=== PATIENT | male | born 1950 | race Caucasian/White ===

== ENCOUNTER → 2019-12-16 09:27 | Outpatient (BNVA) | payer MEDICARE, SELFPAY | PROVIDERS: Family Provider Nurse Practitioner Family; PCP Nurse Practitioner Family; Visit Provider Nurse Practitioner Family | DX: I10 Essential (primary) hypertension (principal); M1A.20X0 Drug-induced chronic gout, unspecified site, without tophus (tophi); E78.2 Mixed hyperlipidemia; E03.9 Hypothyroidism, unspecified; I25.10 Atherosclerotic heart disease of native coronary artery without angina pectoris; E11.69 Type 2 diabetes mellitus with other specified complication; M19.90 Unspecified osteoarthritis, unspecified site; K21.9 Gastro-esophageal reflux disease without esophagitis | CPT/HCPCS: 80053; 80061; 83036; 83721; 84443; 85025 ==

== ENCOUNTER → 2020-06-21 09:51 | Outpatient (BNVA) | payer MEDICARE, SELFPAY | PROVIDERS: Family Provider Nurse Practitioner Family; PCP Nurse Practitioner Family; Visit Provider Nurse Practitioner Family | DX: I25.10 Atherosclerotic heart disease of native coronary artery without angina pectoris (principal); E11.69 Type 2 diabetes mellitus with other specified complication; I10 Essential (primary) hypertension; M1A.20X0 Drug-induced chronic gout, unspecified site, without tophus (tophi) | CPT/HCPCS: 80053; 80061; 82043; 83036; 84443; 84550; 85025 ==

== ENCOUNTER 2020-06-22 08:12 | Outpatient (CLI) | payer MEDICARE, SELFPAY ==
--- NOTE | 2020-06-22 08:45 | US_ITS ---
WS: [id number] RENAL ULTRASOUND HISTORY: Renal Cyst COMPARISON: None available. TECHNIQUE: 2-D and color Doppler imaging of the kidney submitted. Right kidney: 11.4 cm x 5.2 cm x 5.1 cm. Normal size kidney with normal echogenicity. No hydronephrosis. Exophytic cyst associated with the mi d RIGHT kidney measures 4.3 x 2.2 x 2.3 cm. There is an additional pelvic cyst measuring 2.3 x 2.2 x 2.8 cm. Left kidney: 13.7 cm x 5.1 cm x 6.6 cm. Normal size kidney. Large cyst in the lower kidney measures 7.4 x 4.8 x 6.3 cm. There are additional smaller cysts. No solid mass. Aorta: Normal. Urinary Bladder: Normal distention. US/US renal BI* [id number] IMPRESSION: 1. No renal obstruction or solid mass. 2. Bilateral renal cysts.
== END 2020-06-22 08:13 | disposition home or self-care (01) ==
PROVIDERS: PCP Nurse Practitioner Family; Visit Provider Urology
DX: N28.1 Cyst of kidney, acquired (principal)
CPT/HCPCS: 76770; 81001

== ENCOUNTER → 2020-11-02 09:49 | Outpatient (BNVA) | payer MEDICARE, SELFPAY | PROVIDERS: PCP Nurse Practitioner Family; Visit Provider Nurse Practitioner Family | DX: Z12.5 Encounter for screening for malignant neoplasm of prostate (principal); I10 Essential (primary) hypertension; E11.69 Type 2 diabetes mellitus with other specified complication; M1A.20X0 Drug-induced chronic gout, unspecified site, without tophus (tophi); E78.2 Mixed hyperlipidemia; E03.9 Hypothyroidism, unspecified; M19.90 Unspecified osteoarthritis, unspecified site; K21.9 Gastro-esophageal reflux disease without esophagitis; I25.10 Atherosclerotic heart disease of native coronary artery without angina pectoris | CPT/HCPCS: 80053; 80061; 83036; 84443; 84550; 85025; G0103 ==

== ENCOUNTER 2020-11-12 10:08 | Outpatient (CLI) | payer MEDICARE, SELFPAY ==
--- NOTE | 2020-11-12 10:19 | MR_ITS ---
WS: [id number] MRI RIGHT SHOULDER NONCONTRAST TECHNIQUE: Sagittal T2, coronal T1, T2 and proton density imaging. Axial gradient PDE imaging. CLINICAL INFORMATION: RIGHT SHOULDER PAIN COMPARISON: None. FINDINGS: Advanced degenerative arthritis AC joint with edema and synovial thickening. Mild downsloping of the acromion. Tendinopathy of the distal supraspinatus. Small undersurface tear at the insertion. Normal infraspinatus. Normal teres minor and subscapularis. Biceps tendon in the proximal bicipital groove i s absent. Tendon is visualized distally. Chronic degenerative fraying glenoid labrum. Moderate degene rative arthritis glenohumeral joint. MR/MR shoulder RT wo con* [id number] IMPRESSION: 1. Advanced degenerative arthritis AC joint with edema and synovial thickening . 2. No high-grade rotator cuff tear. Small undersurface tear at the supraspinat us insertion with tendinopathy. 3. 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 4. Degenerative fraying of the glenoid labrum. 5. Moderate to advanced degenerative arthritis glenohumeral joint.
== END 2020-11-12 10:09 | disposition home or self-care (01) ==
LOC: RADWPI 10:14
PROVIDERS: PCP Nurse Practitioner Family; Visit Provider Nurse Practitioner Family
DX: M19.011 Primary osteoarthritis, right shoulder (principal); R60.0 Localized edema
CPT/HCPCS: 73221

== ENCOUNTER → 2021-02-14 15:13 | Outpatient (BNVA) | payer MEDICARE, SELFPAY | PROVIDERS: PCP Nurse Practitioner Family; Visit Provider Family Medicine | DX: S46.912A Strain of unspecified muscle, fascia and tendon at shoulder and upper arm level, left arm, initial encounter (principal); I10 Essential (primary) hypertension; E78.2 Mixed hyperlipidemia; E11.69 Type 2 diabetes mellitus with other specified complication; X58.XXXA Exposure to other specified factors, initial encounter | CPT/HCPCS: 80053; 80061; 83036; 83721; 84443; 85025 ==

== ENCOUNTER → 2021-06-27 12:06 | Outpatient (BNVA) | payer MEDICARE, SELFPAY | PROVIDERS: PCP Nurse Practitioner Family; Visit Provider Nurse Practitioner Family | DX: K21.9 Gastro-esophageal reflux disease without esophagitis (principal); M1A.20X0 Drug-induced chronic gout, unspecified site, without tophus (tophi); E11.69 Type 2 diabetes mellitus with other specified complication; Z76.0 Encounter for issue of repeat prescription; E78.2 Mixed hyperlipidemia; E03.9 Hypothyroidism, unspecified; I10 Essential (primary) hypertension; Z68.38 Body mass index [BMI] 38.0-38.9, adult | CPT/HCPCS: 80053; 80061; 82306; 82607; 83036; 84443; 84550; 85025 ==

== ENCOUNTER → 2021-11-25 12:09 | Outpatient (BNVA) | payer MEDICARE, SELFPAY | PROVIDERS: PCP Nurse Practitioner Family; Visit Provider Nurse Practitioner Family | DX: E11.9 Type 2 diabetes mellitus without complications (principal); E78.2 Mixed hyperlipidemia; I10 Essential (primary) hypertension; E03.9 Hypothyroidism, unspecified; M1A.20X0 Drug-induced chronic gout, unspecified site, without tophus (tophi); E11.69 Type 2 diabetes mellitus with other specified complication; M19.90 Unspecified osteoarthritis, unspecified site; I25.10 Atherosclerotic heart disease of native coronary artery without angina pectoris; K21.9 Gastro-esophageal reflux disease without esophagitis; Z12.5 Encounter for screening for malignant neoplasm of prostate | CPT/HCPCS: 80053; 80061; 83036; 83721; 84443; 84550; G0103 ==

== ENCOUNTER → 2022-04-19 13:21 | Outpatient (BNVA) | payer MEDICARE, SELFPAY | PROVIDERS: PCP Nurse Practitioner Family; Visit Provider Nurse Practitioner Family | DX: E03.9 Hypothyroidism, unspecified (principal); I10 Essential (primary) hypertension; K21.9 Gastro-esophageal reflux disease without esophagitis; E78.2 Mixed hyperlipidemia; E11.9 Type 2 diabetes mellitus without complications; E55.9 Vitamin D deficiency, unspecified; M1A.20X0 Drug-induced chronic gout, unspecified site, without tophus (tophi); E11.69 Type 2 diabetes mellitus with other specified complication; M19.90 Unspecified osteoarthritis, unspecified site; I25.10 Atherosclerotic heart disease of native coronary artery without angina pectoris | CPT/HCPCS: 80053; 80061; 82306; 83036; 83721 ==

== ENCOUNTER → 2022-05-11 09:07 | Outpatient (BNVA) | payer MEDICARE, SELFPAY | PROVIDERS: PCP Nurse Practitioner Family; Visit Provider Podiatrist Foot & Ankle Surgery | DX: E11.9 Type 2 diabetes mellitus without complications (principal); R60.9 Edema, unspecified; Z79.84 Long term (current) use of oral hypoglycemic drugs; Z79.4 Long term (current) use of insulin | CPT/HCPCS: 99203 ==

== ENCOUNTER → 2022-08-25 11:22 | Outpatient (BNVA) | payer MEDICARE, SELFPAY | PROVIDERS: PCP Nurse Practitioner Family; Visit Provider Nurse Practitioner Family | DX: E11.9 Type 2 diabetes mellitus without complications (principal); E55.9 Vitamin D deficiency, unspecified; Z23 Encounter for immunization; M1A.20X0 Drug-induced chronic gout, unspecified site, without tophus (tophi); E03.9 Hypothyroidism, unspecified; I10 Essential (primary) hypertension; K21.9 Gastro-esophageal reflux disease without esophagitis; E78.2 Mixed hyperlipidemia | CPT/HCPCS: 80053; 80061; 82043; 82306; 82607; 83036; 83721; 84443; 84550; 85025 ==

== ENCOUNTER → 2022-11-29 10:49 | Outpatient (BNVA) | payer MEDICARE, SELFPAY | PROVIDERS: PCP Nurse Practitioner Family; Visit Provider Nurse Practitioner Family | DX: E11.9 Type 2 diabetes mellitus without complications (principal); E03.9 Hypothyroidism, unspecified; Z12.5 Encounter for screening for malignant neoplasm of prostate | CPT/HCPCS: 80053; 80061; 83036; 84443; 84550; 85025; G0103 ==

== ENCOUNTER → 2023-03-20 10:30 | Outpatient (BNVA) | payer MEDICARE, SELFPAY | PROVIDERS: PCP Nurse Practitioner Family; Visit Provider Nurse Practitioner Family | DX: E11.69 Type 2 diabetes mellitus with other specified complication (principal) | CPT/HCPCS: 80053; 80061; 83036; 84443; 85025 ==

== ENCOUNTER → 2023-08-08 10:56 | Outpatient (BNVA) | payer MEDICARE, SELFPAY | PROVIDERS: PCP Nurse Practitioner Family; Visit Provider Nurse Practitioner Family | DX: E55.9 Vitamin D deficiency, unspecified (principal); E11.69 Type 2 diabetes mellitus with other specified complication | CPT/HCPCS: 80053; 80061; 82306; 83036; 84443; 85025 ==

== ENCOUNTER → 2024-02-18 10:49 | Outpatient (BNVA) | payer MEDICARE, SELFPAY | PROVIDERS: PCP Nurse Practitioner Family; Visit Provider Nurse Practitioner Family | DX: G47.10 Hypersomnia, unspecified (principal); E11.65 Type 2 diabetes mellitus with hyperglycemia; Z79.4 Long term (current) use of insulin; Z12.5 Encounter for screening for malignant neoplasm of prostate; E55.9 Vitamin D deficiency, unspecified; M1A.20X0 Drug-induced chronic gout, unspecified site, without tophus (tophi); I10 Essential (primary) hypertension; E78.2 Mixed hyperlipidemia; E03.9 Hypothyroidism, unspecified; K21.9 Gastro-esophageal reflux disease without esophagitis; G47.33 Obstructive sleep apnea (adult) (pediatric); R53.82 Chronic fatigue, unspecified | CPT/HCPCS: 80053; 80061; 82306; 82607; 83036; 84443; 84550; 85025; G0103 ==

== ENCOUNTER → 2024-08-12 10:21 | Outpatient (BNVA) | payer MEDICARE, SELFPAY | PROVIDERS: PCP Nurse Practitioner Family; Visit Provider Nurse Practitioner Family | DX: E11.65 Type 2 diabetes mellitus with hyperglycemia; Z79.4 Long term (current) use of insulin; E55.9 Vitamin D deficiency, unspecified | CPT/HCPCS: 80053; 80061; 82306; 82607; 83036; 84443; 85025 ==

== ENCOUNTER → 2024-09-15 10:49 | Outpatient (BNVA) | payer MEDICARE, SELFPAY | PROVIDERS: PCP Nurse Practitioner Family; Visit Provider Nurse Practitioner Family | DX: I25.10 Atherosclerotic heart disease of native coronary artery without angina pectoris (principal) | CPT/HCPCS: 82310; 83970; 85025 ==

== ENCOUNTER → 2025-03-16 10:19 | Outpatient (BNVA) | payer MEDICARE, SELFPAY | PROVIDERS: PCP Nurse Practitioner Family; Visit Provider Nurse Practitioner Family | DX: I10 Essential (primary) hypertension (principal); E11.69 Type 2 diabetes mellitus with other specified complication; E55.9 Vitamin D deficiency, unspecified; E11.65 Type 2 diabetes mellitus with hyperglycemia; Z79.4 Long term (current) use of insulin | CPT/HCPCS: 80053; 80061; 82306; 82607; 83036; 84443; 84550; 85025; G0103 ==

== ENCOUNTER → 2025-06-15 09:43 | Outpatient (BNVA) | payer MEDICARE, SELFPAY | PROVIDERS: PCP Nurse Practitioner Family; Visit Provider Nurse Practitioner Family | DX: E55.9 Vitamin D deficiency, unspecified (principal); E11.65 Type 2 diabetes mellitus with hyperglycemia; Z79.4 Long term (current) use of insulin; E11.69 Type 2 diabetes mellitus with other specified complication; M1A.20X0 Drug-induced chronic gout, unspecified site, without tophus (tophi) | CPT/HCPCS: 80053; 80061; 82306; 82607; 83036; 84443; 84550; 85025 ==

== ENCOUNTER → 2025-07-14 12:20 | Outpatient (BNVA) | payer MEDICARE, SELFPAY | PROVIDERS: PCP Nurse Practitioner Family; Visit Provider Nurse Practitioner Family | DX: E55.9 Vitamin D deficiency, unspecified (principal); E11.65 Type 2 diabetes mellitus with hyperglycemia; Z79.4 Long term (current) use of insulin; E11.69 Type 2 diabetes mellitus with other specified complication; M1A.20X0 Drug-induced chronic gout, unspecified site, without tophus (tophi) | CPT/HCPCS: 80053; 80061; 82306; 82607; 84443; 84550 ==